=== PATIENT | female | born 1960 | race Hispanic/Latino ===

== ENCOUNTER 2020-04-05 14:03 | Emergency (ER) | payer SELFPAY ==
[~2020-04-05] VITALS: Ht 165.1 cm; Wt 64.0 kg
[~2020-04-05 14:03] MED LIST: HYDROCODONE
[2020-04-05] MEDS ORDERED: METHYLPREDNISOLONE SOD SUCC 125 MG/2ML VIAL IV ONE (14:30)
[2020-04-05] MEDS ORDERED: DIAZEPAM 5 MG TAB PO PRN (14:30)
[2020-04-05 15:11] LABS: BILIRUBIN,URINE NEGATIVE (NEGATIVE); CLARITY,URINE SL CLOUDY (CLEAR); COLOR,URINE YELLOW (YELLOW); KETONES,URINE NEGATIVE (NEGATIVE); LEUKOCYTE ESTERASE ,URINE NEGATIVE (NEGATIVE); NITRITE,URINE NEGATIVE (NEGATIVE); PROTEIN,URINE DIPSTICK NEGATIVE (NEGATIVE); URINE UROBILINOGEN 0.2 mg/dL (0.2 - 1)
[2020-04-05 15:12] LABS: AMPHETAMINES SCREEN,URINE NEGATIVE (NEGATIVE); BENZODIAZEPINES SCREEN,URINE NEGATIVE (NEGATIVE); PHENCYCLIDINE SCREEN,URINE NEGATIVE (NEGATIVE)
[2020-04-05 15:19] LABS: BACTERIA,URINE MODERATE /HPF; EPITHELIAL CELLS,URINE FEW /LPF
[2020-04-05 15:20] LABS: AMORPHOUS SEDIMENT,URINE MODERATE (FEW); CALCIUM OXALATE CRYSTALS,UR FEW (FEW)
[2020-04-05] MEDS ORDERED: ROBAXIN-750750 MG PO (17:44)
[2020-04-05] MEDS ORDERED: VALIUM2 MG PO (17:44)
[2020-04-05] MEDS ORDERED: NAPROXEN250 MG PO (17:44)
--- NOTE | 2020-04-05 17:48 | Emergency Department Note ---
History of Present Illnes History of Present Illness Chief Complaint: Back Pain History of Present Illness This is a 60 year old female arrives to the ED with complaints of back pain atraumatic. Historian: Patient Arrival Mode: Car Onset (how long ago): day(s) Radiation: Reports non-radiation Severity: mild Onset quality: gradual Duration (how long): day(s) Timing of current episode: intermittent Progression: waxing and waning Associated symptoms: Reports denies other symptoms Past Medical/Family History Physician Review I have reviewed the patient's past medical and family history. Any updates have been documented here. Past Medical History Recent Fever: No Clinical Suspicion of Infectio: No New/Unexplained Change in Ment: No Other Medical History: MITRAL VALVE PROLAPSE Past Surgical History: Hysterectomy, Tubal Ligation Other Surgery: tonsillectomy Social History Smoking Cessation: Current some day smoker Counseling Performed: No Alcohol Use: Occasional Any Illegal Drug Use: No Physically hurt or threatened: No Other Any Pre-Existing Lines (PICC,: No Review of Systems Review of Systems Constitutional: Reports no symptoms EENTM: Reports no symptoms Cardiovascular: Reports no symptoms Respiratory: Reports no symptoms Gastrointestinal: Reports no symptoms Genitourinary: Reports no symptoms Musculoskeletal: Reports as per HPI, Reports back pain Integumentary: Reports no symptoms Neurological: Reports no symptoms Psychological: Reports no symptoms Endocrine: Reports no symptoms Hematological/Lymphatic: Reports no symptoms Physical Exam Related Data Allergies: Coded Allergies: No Known Allergies (Unverified , 01/17/12) Triage Vital Signs Vital Signs Date Time Temp Pulse Resp B/P (MAP) Pulse Ox O2 Delivery O2 Flow Rate FiO2 04/05/20 14:16 97.9 68 18 194/84 100 Room Air Vital signs reviewed: Yes Physical Exam CONSTITUTIONAL Constitutional: Present well-developed, Present well-nourished HENT HENT: Present normocephalic, Present atraumatic, Present oropharynx clear/moist, Present nose normal HENT L/R: Present left ext ear normal, Present right ext ear normal EYES Eyes: Reports PERRL, Reports conjunctivae normal NECK Neck: Present ROM normal PULMONARY Pulmonary: Present effort normal, Present breath sounds normal CARDIOVASCULAR Cardiovascular: Present regular rhythm, Present heart sounds normal, Present capillary refill normal, Present normal rate GASTROINTESTINAL Abdominal: Present soft, Present nontender, Present bowel sounds normal GENITOURINARY Genitourinary: Present exam deferred SKIN Skin: Present warm, Present dry MUSCULOSKELETAL Musculoskeletal: Present tenderness (back pain along iliac crest) NEUROLOGICAL Neurological: Present alert, Present oriented x 3, Present no gross motor or sensory deficits PSYCHOLOGICAL Psychological: Present mood/affect normal, Present judgement normal Results Laboratory Laboratory Laboratory Tests Test 04/05/20 14:50 Urine Color Yellow (YELLOW) Urine Clarity Sl cloudy (CLEAR) Urine pH 5.5 (5 - 7) Urine Specific [place] 1.030 (1.010-1.025) Urine Protein Negative (NEGATIVE) Urine Glucose (UA) Negative (NEGATIVE) Urine Ketones Negative (NEGATIVE) Urine Blood Moderate (NEGATIVE) Urine Nitrite Negative (NEGATIVE) Urine Bilirubin Negative (NEGATIVE) Urine Urobilinogen 0.2 mg/dL (0.2 - 1) Urine Leukocyte Esterase Negative (NEGATIVE) Urine RBC 6-10 /HPF (0-5) Urine WBC None /HPF (0-5) Urine Epithelial Cells Few /LPF (NONE) Urine Calcium Oxalate Crystals Few (FEW) Urine Amorphous Sediment Moderate (FEW) Urine Bacteria Moderate /HPF (NONE) Urine Opiates Screen Negative (NEGATIVE) Urine Methadone Screen Negative (NEGATIVE) Urine Barbiturates Screen Negative (NEGATIVE) Urine Phencyclidine Screen Negative (NEGATIVE) Urine Amphetamines Screen Negative (NEGATIVE) Urine Methamphetamines Screen Negative (NEGATIVE) Urine Benzodiazepines Screen Negative (NEGATIVE) Urine Cocaine Screen Negative (NEGATIVE) Urine Cannabinoids Screen Positive (NEGATIVE) Lab results reviewed: Yes Imaging Imaging results reviewed: Yes Impressions IMPRESSION: 4 mm calculus at the left ureterovesical junction with upstream mild hydroureteronephrosis. Assessment & Plan Medical Decision Making MDM 60-year-old female arrived to the ED with back pain, findings of renal stone noted. Patient's pain well controlled. Patient given a prescription for Flomax, pain medication and prophylactic antibiotics instructed to follow up with urology as an outpatient. Assessment & Plan Final Impression: (1) Ureterolithiasis Depart Disposition: HOME, SELF-CARE Last Vital Signs Date Time Temp Pulse Resp B/P (MAP) Pulse Ox O2 Delivery O2 Flow Rate FiO2 04/05/20 14:16 97.9 68 18 194/84 100 Room Air Home Meds Active Scripts Naproxen (NAPROXEN) 250 Mg Tablet, 250 MG PO BID PRN for MUSCLE SPASMS, #14 TAB Prov:ANA MARIA STARR, DO 04/05/20 Diazepam (VALIUM) 2 Mg Tablet, 2 MG PO Q6HR PRN for MUSCLE SPASMS, #20 0 Refills Prov:ANA MARIA STARR DO 04/05/20 Methocarbamol (ROBAXIN-750) 750 Mg Tablet, 750 MG PO Q8HR PRN for MUSCLE SPASMS, #14 Prov:ANA MARIA STARR DO 04/05/20 Reported Medications [Hydrocodone] 1 TAB TAB No Conflict Check 01/17/12 Medications in the ED Methylprednisolone Sodium Succinate 125 mg ONCE ONCE IV Last administered on 04/05/20at 15:00; Admin Dose 125 MG; Start 04/05/20 at 14:30; Stop 04/05/20 at 14:31; Status DC Diazepam 5 mg ONCE PRN PO ANXIETY Last administered on 04/05/20at 15:28; Admin Dose 5 MG; Start 04/05/20 at 14:30; Stop 04/12/20 at 14:29 ANA MARIA STARR DO Apr 05, 2020 17:48
== END 2020-04-05 17:53 | disposition home or self-care (01) ==
LOC: ER 14:23
DX: N20.1 Calculus of ureter (principal); M54.5 Low back pain; Z86.79 Personal history of other diseases of the circulatory system; F17.210 Nicotine dependence, cigarettes, uncomplicated
CPT/HCPCS: 80307; 81001; 99283; J2930

== ENCOUNTER 2020-04-07 18:38 | Emergency (ER) | payer SELFPAY ==
[~2020-04-07] VITALS: Ht 165.1 cm; Wt 64.0 kg
[~2020-04-07 18:38] MED LIST changes: +NAPROXEN250 MG PO; +ROBAXIN-750750 MG PO; +VALIUM2 MG PO
[2020-04-07] MEDS ORDERED: KETOROLAC TROMETHAMINE 30 MG/ML VIAL IV NR (19:00)
[2020-04-07] MEDS ORDERED: ONDANSETRON HCL INJ 2MG/ML 2ML 2 MG/ML VIAL IV NR (19:00)
[2020-04-07 19:04] LABS: BASOPHILS # (AUTO) 0.1 (0.0-0.1); BASOPHILS % 0.9 % (0.0-1.0); EOSINOPHILS # (AUTO) 0.5 (0.0-0.4); EOSINOPHILS % 3.6 % (0.0-6.0); HEMATOCRIT 41.8 % (34.2-44.1); HEMOGLOBIN 13.7 g/dL (12.0-16.0); LYMPHOCYTES # (AUTO) 1.7 (1.0-3.2); LYMPHOCYTES % 13.6 % (18.0-39.1); MEAN CORPUSCULAR HGB CONC 32.8 g/dL (31-35); MEAN CORPUSCULAR VOLUME 85.5 fL (81-99); MONOCYTES # (AUTO) 0.4 (0.2-0.8); MONOCYTES % 2.9 % (4.4-11.3); NEUTROPHILS # (AUTO) 9.8 (2.1-6.9); NEUTROPHILS % 78.7 % (38.7-80.0); PLATELET COUNT 341 x10e3/uL (140-360); RED BLOOD COUNT 4.89 x10e6/uL (3.6-5.1); RED CELL DISTRIBUTION WIDTH 13.3 % (11.7-14.4)
[2020-04-07 19:09] LABS: CLARITY,URINE TURBID (CLEAR); COLOR,URINE RED (YELLOW)
[2020-04-07 19:10] LABS: BACTERIA,URINE FEW /HPF; BILIRUBIN,URINE NEGATIVE (NEGATIVE); EPITHELIAL CELLS,URINE FEW /LPF; KETONES,URINE TRACE (NEGATIVE); LEUKOCYTE ESTERASE ,URINE NEGATIVE (NEGATIVE); MUCUS,URINE FEW (RARE); NITRITE,URINE NEGATIVE (NEGATIVE); PROTEIN,URINE DIPSTICK 1+ (NEGATIVE); RBC,URINE >50 /HPF (0-5); URINE UROBILINOGEN 0.2 mg/dL (0.2 - 1); WBC,URINE (MAN) 0-5 /HPF (0-5)
[2020-04-07 19:19] LABS: ANION GAP 13.4 mmol/L (8-16); CARBON DIOXIDE 24 mmol/L (22-29); CHLORIDE 103 mmol/L (98-107); CREATININE, SERUM 0.76 mg/dL (0.57-1.11); EST GLOMERULAR FILTRATION RATE > 60 ML/MIN (60-); GLUCOSE 98 mg/dL (74-118); POTASSIUM 3.4 mmol/L (3.5-5.1); SODIUM 137 mmol/L (136-145)
--- NOTE | 2020-04-07 19:38 | Diagnostic Imaging Report ---
EXAM: CT Abdomen and Pelvis WITHOUT contrast INDICATION: ^LEFT FLANK PAIN, STONE PROTOCOL ^[id number] ^1905 ^Y COMPARISON: None. TECHNIQUE: Abdomen and pelvis were scanned utilizing a multidetector helical scanner from the lung base to the pubic symphysis without administration of IV contrast. Absence of intravenous contrast decreases sensitivity for detection of focal lesions and vascular pathology. Coronal and sagittal reformations were obtained. Routine protocol was performed. IV CONTRAST: None ORAL CONTRAST: None COMPLICATIONS: None RADIATION DOSE: Total DLP: 224.60 mGy*cm Estimated effective dose: (DLP x 0.015 x size factor) mSv CTDIvol has been reviewed. It is below the limits set by the Radiation Protocol Committee (RPC). Dose modulation, iterative reconstruction, and/or weight based adjustment of the mA/kV was utilized to reduce the radiation dose to as low as reasonably achievable. FINDINGS: LINES and TUBES: None. LOWER THORAX: Unremarkable HEPATOBILIARY: No focal hepatic lesions. No biliary ductal dilation. GALLBLADDER: No radio-opaque stones or sludge. No wall thickening. SPLEEN: No splenomegaly. PANCREAS: No focal masses or ductal dilatation. ADRENALS: No adrenal nodules KIDNEYS/URETERS: 4 mm calculus at the left ureterovesical junction with upstream mild hydroureteronephrosis.. GI TRACT: No abnormal distention, wall thickening, or evidence of bowel obstruction. Appendix is normal. PELVIC ORGANS/BLADDER: Unremarkable. LYMPH NODES: No lymphadenopathy. VESSELS: Unremarkable. PERITONEUM / RETROPERITONEUM: No free air or fluid. BONES: Unremarkable. SOFT TISSUES: Unremarkable. IMPRESSION: 4 mm calculus at the left ureterovesical junction with upstream mild hydroureteronephrosis. Signed by: Merrill Sutton MD on 04/07/2020 7:35 PM
[2020-04-07 19:42] LABS: BLOOD UREA NITROGEN 17 mg/dL (7-26); BUN/CREATININE RATIO 23 (6-25)
--- OUTSIDE RECORDS SUMMARY | 2020-04-07 19:47 | XMS REPORT | Continuity of Care Document ---
Author Author [facility] t Organization [facility] Address [address] [place] [address] Phone Unavailable Care Team Providers Care Marketing Database Analyst Name Role Phone MD Alexis SCHOFIELD PCP Amanda BRASWELL Unavailable Payers Payer Name Policy Type Policy Number Effective Date Expiration Date S an[place] [employer] [place] Ppo [id number] [facility] I [facility] Problems Condition Name Condition Details Condition Category Status Onset Date Resolution Date Last Treatment Date Treating Clinician Comments Source Problem Condition Active [facility] Allergies, Adverse Reactions, Alerts This patient has no known allergies or adverse reactions. Social History Social Habit Start Date Stop Date Quantity Comments Source Sex Assigned At 1960 00:00:00 1960 00:00:00 Female [facility] Medications Ordered Medication Name Filled Medication Name Start Date Stop Da te Current Medication? Ordering Clinician Indication Dosage Frequency Signature (SIG) Comments Components Source Diazepam (Valium) 2 Mg TABLET Diazepam (Valium) 2 Mg TABLET 2019 17:44:00 Yes 2 Every 6 Hours as needed for Musc le Spasms [facility] Methocarbamol (Robaxin-750) 750 Mg TABLET Methocarbamo l (Robaxin-750) 750 Mg TABLET 2020-04-05 17:44:00 Yes 750 Ever y 8 Hours as needed for Muscle Spasms [facility] Naproxen Naproxen 2020-04-05 17:44:00 Yes 250 Twice A Day as needed for Muscle Spasms [facility] Hydrocodone Hydrocodone Yes C HI [facility] Vital Signs Vital Name Observation Time Observation Value Comments Source Weight 2020-04-05 14:16:00 141 [lb_av] [facility] BMI (Body Mass Index) 2020-04-05 14:16:00 23.5 kg/m2 [facility] Procedures This patient has no known procedures. Plan of Care Planned Activity Planned Date Details Comments Source Instructions Back Pain [facility] Encounters Start Date/Time End Date/Time Encounter Type Admission Type [facility] Care Department Encounter ID Source 2020-04-05 14:23:00 2020-04-05 17:53:00 Departed Emergency Room [facility] [id number] [facility] Results Test Description Test Time Test Comments Results Result Comments Source CT ABDOMEN/PELVIS WO 2020-04-07 19:29:00 [place] [address] Patient Name: EKATERINA SIMON MR #: [id number] : 1960 Age/Sex: 60/F Req #: [id number] Adm Physician: Ordered by: DEAN BRASWELL MD Report #: [id number] Location: ER Room/Bed: Procedure: [id number] CT/CT ABDOMEN/PELVIS WO Exam Date: 04/07/20 Exam Time: 1904 REPORT STATUS: Signed EXAM: CT Abdomen and Pelvis WITHOUT contrast INDICATION: LEFT FLANK PAIN, STONE PROTOCOL [id number] 1904 Y COMPARISON: None. TECHNIQUE: Abdomen and pelvis were scanned utilizing a multidetector helical scanner from the lung base to the pubic symphysis without administration of IV contrast. Absence of intravenous contrast decreases sensitivity for detection of focal lesions and vascular pathology. Coronal and sagittal reformations were obtained. Routine protocol was performed. IV CONTRAST: None ORAL CONTRAST: None COMPLICATIONS: None RADIATION DOSE: Total DLP: 224.60 mGy*cm Estimated effective dose: (DLP x 0.015 x size factor) mSv CTDIvol has been reviewed. It is below the limits set by the Radiation Protocol Committee (RPC). Dose modulation, iterative reconstruction, and/or weight based adjustment of the mA/kV was utilized to reduce the radiation dose to as low as reasonably achievable. FINDINGS: LINES and TUBES: None. LOWER THORAX: Unremarkable HEPATOBILIARY: No focal hepatic lesions. No biliary ductal dilation. GALLBLADDER: No radio-opaque stones or sludge. No wall thickening. SPLEEN: No splenomegaly. PANCREAS: No focal masses or ductal dilatation. ADRENALS: No adrenal nodules KIDNEYS/URETERS: 4 mm calculus at the left ureterovesical junction with upstream mild hydroureteronephrosis.. GI TRACT: No abnormal distention, wall thickening, or evidence of bowel obstruction. Appendix is normal. PELVIC ORGANS/BLADDER: Unremarkable. LYMPH NODES: No lymphadenopathy. VESSELS: Unremarkable. PERITONEUM / RETROPERITONEUM: No free air or fluid. BONES: Unremarkable. SOFT TISSUES: Unremarkable. IMPRESSION: 4 mm calculus at the left ureterovesical junction with upstream mild hydroureteronephrosis. Signed by: Simone Multani MD on 04/07/2020 7:35 PM Dictated By: SIMONE MULTANI MD 34 Transcribed By: JOSE LUIS on 04/07/201934 COPY TO: DEAN BRASWELL MD Urine color determination 2020-04-05 14:50:00 Test Item Urine Color (test code = 5778-6) YELLOW YELLOW [facility] [id number] 14:50:00* Test Item Value Reference Range Interpretation Comments Urine Clarity (test code = 04305-6) SL CLOUDY CLEAR [facility] Urine by Test strip 2020-04-05 14:50:00* Test Item Value Reference Range Interpretation Comments Urine Specific [place] (test code = 5811-5) 1.030 1.010-1.02 5 [facility] pH measurement by automated test [id number] 14:50:00* Test Item Value Reference Range Interpretation Comments Urine pH (test code = 64115-0) 5.5 5-7 [facility] leukocyte esterase detection by [id number] 14:50:00* Test Item Value Reference Range Interpretation Comments Urine Leukocyte Esterase (test code = 5799-2) NEGATIVE NEGATIVE [facility] nitrite [id number] 14:50:00* Test Item Value Reference Range Interpretation Comments Urine Nitrite (test code = 39691-1) NEGATIVE NEGATIVE [facility] protein measurement by test strip (mass/volume)2020-04-05 14:50:00* Test Item Value Reference Range Interpretation Comments Urine Protein (test code = 5804-0) NEGATIVE NEGATIVE [facility] glucose [id number] 14:50:00* Test Item Value Reference Range Interpretation Comments Urine Glucose (UA) (test code = 2349-9) NEGATIVE NEGATIVE [facility] ketones detection by automated test [id number] 14:50:00* Test Item Value Reference Range Interpretation Comments Urine Ketones (test code = 55510-7) NEGATIVE NEGATIVE [facility] opiates screening [id number] 14:50:00* Test Item Value Reference Range Interpretation Comments Urine Opiates Screen (test code = 72483-5) NEGATIVE NEGATIVE ALL TESTS PERFORMED MANUALLY ON [employer] TOX/SEE TESTCovenant Children's HospitalBarbiturates screen, [id number] 14:50:00* Test Item Value Reference Range Interpretation Comments Urine Barbiturates Screen (test code = 362557892) NEGATIVE NEGA TIVE [facility] phencyclidine detection by screening [id number] 14:50:00* Test Item Value Reference Range Interpretation Comments Urine Phencyclidine Screen (test code = 04741-3) NEGATIVE NEGAT CATHI [facility] amphetamines detection by screen method > 1000 [id number] 14:50:00* Test Item Value Reference Range Interpretation Comments Urine Amphetamines Screen (test code = 99131-5) NEGATIVE NEGATI VE [facility] HospitalFluoroscopic procedure less than one hour [id number] 14:50:00* Test Item Value Reference Range Interpretation Comments Urine Methamphetamines Screen (test code = Urine Metha mphetamines Screen) NEGATIVE NEGATIVE [facility] benzodiazepines detection by screening [id number] 14:50:00* Test Item Value Reference Range Interpretation Comments Urine Benzodiazepines Screen (test code = 60639-2) NEGATIVE NEG ATIVE [facility] cocaine measurement (mass/volume) 2020-04-05 14:50:00* Test Item Value Reference Range Interpretation Comments Urine Cocaine Screen (test code = 3398-5) NEGATIVE NEGATIVE [facility] cannabinoids detection by screening [id number] 14:50:00* Test Item Value Reference Range Interpretation Comments Urine Cannabinoids Screen (test code = 29972-4) POSITIVE NEGATI VE THESE RESULTS ARE FOR MEDICAL TREATMENT ONLYTHIS REPORT CONTAINS UNCONFIR MED SCREENING RESULTS*POSITIVE RESULTS WILL BE CONFIRMED BY REFERENCE LAB UPON R EQUEST CUT-OFFDRUG CLASS CONCENTRATION ng/mLAmphetamines 1000Methamphetamines 1000Cocaine 300Opiate 300Phencyc lidine 25Cannabinoid 50Barbiturates 300Benzodiazepine 300Methadone 300 This test p rovides only a screen. Positive results should be repeated by a confirmatory monica t.[facility] methadone [id number] 14:50:00* Test Item Value Reference Range Interpretation Comments Urine Methadone Screen (test code = 37819-3) NEGATIVE NEGATIVE THESE RESULTS ARE FOR MEDICAL TREATMENT ONLYTHIS REPORT CONTAINS UNCONFIR MED SCREENING RESULTS*POSITIVE RESULTS WILL BE CONFIRMED BY REFERENCE LAB UPON R EQUEST CUT-OFFDRUG CLASS CONCENTRATION ng/mLAmphetamines 1000Methamphetamines 1000Cocaine Metabolite 300Opiate 300Phencyc lidine 25Cannabinoid 50Barbiturates 300Benzodiazepine 300Methadone 300[facility] urobilinogen measurement by test strip (mass/volume)2020-04-05 14:50:00* Test Item Value Reference Range Interpretation Comments Urine Urobilinogen (test code = 41709-8) 0.2 0.2-1 [facility] total bilirubin measurement (mass/volume)2020-04-05 14:50:00* Test Item Value Reference Range Interpretation Comments Urine Bilirubin (test code = 1978-6) NEGATIVE NEGATIVE [facility] erythrocytes [id number] 14:50:00* Test Item Value Reference Range Interpretation Comments Urine Blood (test code = 99748-6) MODERATE NEGATIVE [facility] HospitalAutomated urine sediment leukocyte count by microscopy (number/high power field)2020-04-05 14:50:00* Test Item Value Reference Range Interpretation Comments Urine WBC (test code = 5821-4) NONE 0-5 [facility] HospitalErythrocytes detection in urine sediment by light [id number] 14:50:00* Test Item Value Reference Range Interpretation Comments Urine RBC (test code = 41989-9) 6-10 0-5 [facility] HospitalBacteria detection in urine sediment by light [id number] 14:50:00* Test Item Value Reference Range Interpretation Comments Urine Bacteria (test code = 46420-8) MODERATE NONE [facility] HospitalEpithelial cells detection in urine sediment by light [id number] 14:50:00* Test Item Value Reference Range Interpretation Comments Urine Epithelial Cells (test code = 51672-4) FEW NONE [facility] HospitalCalcium oxalate crystals detection in urine sediment by light [id number] 14:50:00* Test Item Value Reference Range Interpretation Comments Urine Calcium Oxalate Crystals (test code = 5774-5) FEW FE W [facility] HospitalAmorphous sediment detection in urine sediment by light [id number] 14:50:00* Test Item Value Reference Range Interpretation Comments Urine Amorphous Sediment (test code = 8246-1) MODERATE FEW [facility]
--- NOTE | 2020-04-07 20:02 | Emergency Department Note ---
History of Present Illnes History of Present Illness Chief Complaint: Flank Pain History of Present Illness This is a 60 year old female PRESENTS WITH LEFT FLANK PAIN RADIATING TO LEFT LOWER ABD. . Historian: Patient Arrival Mode: Car Onset (how long ago): hour(s) (4) Location: LEFT FLANK RADIATING TO LLQ Quality: PAIN WITH NAUSEA Radiation: Reports other (LLQ) Severity: severe Onset quality: sudden Duration (how long): hour(s) (4) Timing of current episode: constant Progression: waxing and waning Chronicity: recurrent Context: Denies recent illness, Denies recent surgery, Denies trauma/injury Relieving factors: none Exacerbating factors: none Associated symptoms: Reports nausea/vomiting Past Medical/Family History Physician Review I have reviewed the patient's past medical and family history. Any updates have been documented here. Past Medical History Recent Fever: No Clinical Suspicion of Infectio: No New/Unexplained Change in Ment: No Other Medical History: MITRAL VALVE PROLAPSE Past Surgical History: Hysterectomy, Tubal Ligation Other Surgery: tonsillectomy Social History Smoking Cessation: Current some day smoker Alcohol Use: Occasional Any Illegal Drug Use: No Physically hurt or threatened: No Family History Family history of heart diseas: No Review of Systems Review of Systems Constitutional: Reports no symptoms EENTM: Reports no symptoms Cardiovascular: Reports no symptoms Respiratory: Reports no symptoms Gastrointestinal: Reports as per HPI Genitourinary: Reports as per HPI Musculoskeletal: Reports no symptoms Integumentary: Reports no symptoms Neurological: Reports no symptoms Psychological: Reports no symptoms Endocrine: Reports no symptoms Hematological/Lymphatic: Reports no symptoms Physical Exam Related Data Allergies: Coded Allergies: No Known Allergies (Unverified , 01/17/12) Triage Vital Signs Vital Signs Date Time Temp Pulse Resp B/P (MAP) Pulse Ox O2 Delivery O2 Flow Rate FiO2 04/07/20 18:43 98.7 73 18 192/91 98 Room Air Vital signs reviewed: Yes Physical Exam CONSTITUTIONAL Constitutional: Present well-developed, Present well-nourished, Present distressed (MODERATE) HENT HENT: Present normocephalic, Present atraumatic, Present oropharynx clear/moist, Present nose normal HENT L/R: Present left ext ear normal, Present right ext ear normal EYES Eyes: Reports PERRL, Reports conjunctivae normal NECK Neck: Present ROM normal PULMONARY Pulmonary: Present effort normal, Present breath sounds normal CARDIOVASCULAR Cardiovascular: Present regular rhythm, Present heart sounds normal, Present capillary refill normal, Present normal rate GASTROINTESTINAL Abdominal: Present soft, Present nontender, Present bowel sounds normal, Present left CVA tenderness (MILD) GENITOURINARY Genitourinary: Present exam deferred SKIN Skin: Present warm, Present dry MUSCULOSKELETAL Musculoskeletal: Present ROM normal NEUROLOGICAL Neurological: Present alert, Present oriented x 3, Present no gross motor or sensory deficits PSYCHOLOGICAL Psychological: Present mood/affect normal, Present judgement normal Results Laboratory Result Diagram: 04/07/20185004/07/201850 Laboratory Laboratory Tests Test 04/07/20 18:52 04/07/20 18:51 Urine Color Red (YELLOW) Urine Clarity Turbid (CLEAR) Urine pH 7.5 (5 - 7) Urine Specific [place] 1.025 (1.010-1.025) Urine Protein 1+ (NEGATIVE) Urine Glucose (UA) Negative (NEGATIVE) Urine Ketones Trace (NEGATIVE) Urine Blood Large (NEGATIVE) Urine Nitrite Negative (NEGATIVE) Urine Bilirubin Negative (NEGATIVE) Urine Urobilinogen 0.2 mg/dL (0.2 - 1) Urine Leukocyte Esterase Negative (NEGATIVE) Urine RBC >50 /HPF (0-5) Urine WBC 0-5 /HPF (0-5) Urine Epithelial Cells Few /LPF (NONE) Urine Bacteria Few /HPF (NONE) Urine Mucus Few (RARE) White Blood Count 12.41 x10e3/uL (4.8-10.8) Red Blood Count 4.89 x10e6/uL (3.6-5.1) Hemoglobin 13.7 g/dL (12.0-16.0) Hematocrit 41.8 % (34.2-44.1) Mean Corpuscular Volume 85.5 fL (81-99) Mean Corpuscular Hemoglobin 28.0 pg (28-32) Mean Corpuscular Hemoglobin Concent 32.8 g/dL (31-35) Red Cell Distribution Width 13.3 % (11.7-14.4) Platelet Count 341 x10e3/uL (140-360) Neutrophils (%) (Auto) 78.7 % (38.7-80.0) Lymphocytes (%) (Auto) 13.6 % (18.0-39.1) Monocytes (%) (Auto) 2.9 % (4.4-11.3) Eosinophils (%) (Auto) 3.6 % (0.0-6.0) Basophils (%) (Auto) 0.9 % (0.0-1.0) Neutrophils # (Auto) 9.8 (2.1-6.9) Lymphocytes # (Auto) 1.7 (1.0-3.2) Monocytes # (Auto) 0.4 (0.2-0.8) Eosinophils # (Auto) 0.5 (0.0-0.4) Basophils # (Auto) 0.1 (0.0-0.1) Absolute Immature Granulocyte (auto 0.04 x10e3/uL (0-0.1) Sodium Level 137 mmol/L (136-145) Potassium Level 3.4 mmol/L (3.5-5.1) Chloride Level 103 mmol/L (98-107) Carbon Dioxide Level 24 mmol/L (22-29) Anion Gap 13.4 mmol/L (8-16) Blood Urea Nitrogen 17 mg/dL (7-26) Creatinine 0.76 mg/dL (0.57-1.11) Estimat Glomerular Filtration Rate > 60 ML/MIN (60-) BUN/Creatinine Ratio 23 (6-25) Glucose Level 98 mg/dL (74-118) Calcium Level 10.0 mg/dL (8.4-10.2) Laboratory Tests Test 04/07/20 18:52 04/07/20 18:51 Urine Color Red (YELLOW) Urine Clarity Turbid (CLEAR) Urine pH 7.5 (5 - 7) Urine Specific [place] 1.025 (1.010-1.025) Urine Protein 1+ (NEGATIVE) Urine Glucose (UA) Negative (NEGATIVE) Urine Ketones Trace (NEGATIVE) Urine Blood Large (NEGATIVE) Urine Nitrite Negative (NEGATIVE) Urine Bilirubin Negative (NEGATIVE) Urine Urobilinogen 0.2 mg/dL (0.2 - 1) Urine Leukocyte Esterase Negative (NEGATIVE) Urine RBC >50 /HPF (0-5) Urine WBC 0-5 /HPF (0-5) Urine Epithelial Cells Few /LPF (NONE) Urine Bacteria Few /HPF (NONE) Urine Mucus Few (RARE) White Blood Count 12.41 x10e3/uL (4.8-10.8) Red Blood Count 4.89 x10e6/uL (3.6-5.1) Hemoglobin 13.7 g/dL (12.0-16.0) Hematocrit 41.8 % (34.2-44.1) Mean Corpuscular Volume 85.5 fL (81-99) Mean Corpuscular Hemoglobin 28.0 pg (28-32) Mean Corpuscular Hemoglobin Concent 32.8 g/dL (31-35) Red Cell Distribution Width 13.3 % (11.7-14.4) Platelet Count 341 x10e3/uL (140-360) Neutrophils (%) (Auto) 78.7 % (38.7-80.0) Lymphocytes (%) (Auto) 13.6 % (18.0-39.1) Monocytes (%) (Auto) 2.9 % (4.4-11.3) Eosinophils (%) (Auto) 3.6 % (0.0-6.0) Basophils (%) (Auto) 0.9 % (0.0-1.0) Neutrophils # (Auto) 9.8 (2.1-6.9) Lymphocytes # (Auto) 1.7 (1.0-3.2) Monocytes # (Auto) 0.4 (0.2-0.8) Eosinophils # (Auto) 0.5 (0.0-0.4) Basophils # (Auto) 0.1 (0.0-0.1) Absolute Immature Granulocyte (auto 0.04 x10e3/uL (0-0.1) Sodium Level 137 mmol/L (136-145) Potassium Level 3.4 mmol/L (3.5-5.1) Chloride Level 103 mmol/L (98-107) Carbon Dioxide Level 24 mmol/L (22-29) Anion Gap 13.4 mmol/L (8-16) Blood Urea Nitrogen 17 mg/dL (7-26) Creatinine 0.76 mg/dL (0.57-1.11) Estimat Glomerular Filtration Rate > 60 ML/MIN (60-) BUN/Creatinine Ratio 23 (6-25) Glucose Level 98 mg/dL (74-118) Calcium Level 10.0 mg/dL (8.4-10.2) Lab results reviewed: Yes Imaging Imaging results reviewed: Yes Impressions EXAM: CT Abdomen and Pelvis WITHOUT contrast INDICATION: ^LEFT FLANK PAIN, STONE PROTOCOL ^[id number] ^190 ^Y COMPARISON: None. TECHNIQUE: Abdomen and pelvis were scanned utilizing a multidetector helical scanner from the lung base to the pubic symphysis without administration of IV contrast. Absence of intravenous contrast decreases sensitivity for detection of focal lesions and vascular pathology. Coronal and sagittal reformations were obtained. Routine protocol was performed. IV CONTRAST: None ORAL CONTRAST: None COMPLICATIONS: None RADIATION DOSE: Total DLP: 224.60 mGy*cm Estimated effective dose: (DLP x 0.015 x size factor) mSv CTDIvol has been reviewed. It is below the limits set by the Radiation Protocol Committee (RPC). Dose modulation, iterative reconstruction, and/or weight based adjustment of the mA/kV was utilized to reduce the radiation dose to as low as reasonably achievable. FINDINGS: LINES and TUBES: None. LOWER THORAX: Unremarkable HEPATOBILIARY: No focal hepatic lesions. No biliary ductal dilation. GALLBLADDER: No radio-opaque stones or sludge. No wall thickening. SPLEEN: No splenomegaly. PANCREAS: No focal masses or ductal dilatation. ADRENALS: No adrenal nodules KIDNEYS/URETERS: 4 mm calculus at the left ureterovesical junction with upstream mild hydroureteronephrosis.. GI TRACT: No abnormal distention, wall thickening, or evidence of bowel obstruction. Appendix is normal. PELVIC ORGANS/BLADDER: Unremarkable. LYMPH NODES: No lymphadenopathy. VESSELS: Unremarkable. PERITONEUM / RETROPERITONEUM: No free air or fluid. BONES: Unremarkable. SOFT TISSUES: Unremarkable. IMPRESSION: 4 mm calculus at the left ureterovesical junction with upstream mild hydroureteronephrosis. Signed by: Simone Multani MD on 04/07/2020 7:35 PM Dictated By: SIMONE MULTANI MD 34 Transcribed By: JOSE LUIS on 04/07/201934 COPY TO: DEAN BRASWELL MD~ Assessment & Plan Medical Decision Making MDM PT WITH LEFT FLANK PAIN RADIATING TO LLQ CBC, BMP, UA, CT ABD/PELVIS ORDERED TO EVAL FOR HEMATURIA, UTI, PYELONEPHRITIS, KIDNEY STONE, HYDRONEPHROSIS, ELECTROLYTE ABNORMALITY TORADOL 30 MG IV ORDERED PT WITH KIDNEY STONE PRESCRIBED TORADOL 10 MG 1 PO Q 6 HOURS #16 ZOFRAN ODT 4 MG 1 SL Q 6 HOURS PRN NAUSE #30 TYLENOL #3 ONE PO Q 6 HOUR PRN PAIN #20 MACROBID 100 MG ON PO BID #20 Reassessment Reassessment time: 20:54 Reassessment PT PAIN FREE AT THIS TIME AFTER TORADOL 30 MG IV Assessment & Plan Final Impression: (1) Ureterolithiasis Depart Disposition: HOME, SELF-CARE Last Vital Signs Date Time Temp Pulse Resp B/P (MAP) Pulse Ox O2 Delivery O2 Flow Rate FiO2 04/07/20 19:33 100 Room Air 04/07/20 18:43 98.7 73 18 Home Meds Active Scripts Naproxen (NAPROXEN) 250 Mg Tablet, 250 MG PO BID PRN for MUSCLE SPASMS, #14 TAB Prov:TIERNEYR AMBICA, DO 04/05/20 Diazepam (VALIUM) 2 Mg Tablet, 2 MG PO Q6HR PRN for MUSCLE SPASMS, #20 0 Refills Prov:TIERNEYR AMBICA, DO 04/05/20 Methocarbamol (ROBAXIN-750) 750 Mg Tablet, 750 MG PO Q8HR PRN for MUSCLE SPASMS, #14 Prov:ANA MARIA STARR, DO 04/05/20 Reported Medications [Hydrocodone] 1 TAB TAB No Conflict Check 01/17/12 Medications in the ED Ketorolac Tromethamine 30 mg ONCE IV Last administered on 04/07/20at 19:41; Admin Dose 30 MG; Start 04/07/20 at 19:00; Stop 04/07/20 at 20:59 Ondansetron HCl 4 mg NOW IV Last administered on 04/07/20at 19:41; Admin Dose 4 MG; Start 04/07/20 at 19:00; Stop 04/07/20 at 20:59 DEAN BRASWELL MD Apr 07, 2020 20:02
== END 2020-04-07 22:07 | disposition home or self-care (01) ==
LOC: ER 18:47
DX: N20.1 Calculus of ureter (principal); M54.5 Low back pain; R10.32 Left lower quadrant pain; R11.2 Nausea with vomiting, unspecified; F17.210 Nicotine dependence, cigarettes, uncomplicated
CPT/HCPCS: 36415; 74176; 80048; 81001; 85025; 99284; J1885; J2405